=== PATIENT | female | born 1980 | race Caucasian/White ===

== ENCOUNTER 2018-07-21 07:56 | Day surgery (SDC) | payer OTHER ==
[2018-07-21] MEDS ORDERED: SOD CHLORIDE 0.9% 1,000 ML IV (08:30)
[2018-07-21] MEDS ORDERED: CEFAZOLIN 2 GM/50 ML (PMX) 50 ML IVPB (08:30)
[2018-07-21] MEDS ORDERED: DEXAMETHASONE 4 MG/ML 1 ML INJ (09:40)
[2018-07-21] MEDS ORDERED: ONDANSETRON 4 MG INJ (09:40)
[2018-07-21] MEDS ORDERED: CEFAZOLIN 1 GM INJ (09:40)
[2018-07-21] MEDS ORDERED: MIDAZOLAM 1 MG/ML 2 ML INJ (09:40)
[2018-07-21] MEDS ORDERED: FENTAnyl 50 MCG/ML VIAL (09:40)
[2018-07-21] MEDS ORDERED: PROPOFOL 40 ML (09:40)
[2018-07-21] MEDS ORDERED: FAMOTIDINE 20 MG INJ (09:40)
[2018-07-21] MEDS ORDERED: LIDOCAINE 2% (SDV) 5 ML INJ (09:40)
[2018-07-21] MEDS ORDERED: KETAMINE (50 MG/ML) 10 ML VIAL (11:06)
[2018-07-21] MEDS ORDERED: morphine (1 MG/ML) 10ML SYRINGE IV ×2 (11:30)
[2018-07-21] MEDS ORDERED: OXYCODONE/ACETAMINOPHEN (5/325) TAB PO ×2 (11:30)
[2018-07-21] MEDS ORDERED: DIPHENHYDRAMINE 50 MG INJ IV (11:30)
[2018-07-21] MEDS ORDERED: ALBUTEROL 0.083% (NEB) 2.5 MG/3 ML AMP HHN (11:30)
[2018-07-21] MEDS ORDERED: ONDANSETRON 4 MG INJ IV ×2 (11:30→12:30)
[2018-07-21] MEDS ORDERED: FENTAnyl 50 MCG/ML VIAL IV ×2 (11:30)
[2018-07-21] MEDS ORDERED: LABETALOL HCL 20MG INJ IV (11:30)
[2018-07-21] MEDS ORDERED: MEPERIDINE 25 MG INJ IV (11:30)
[2018-07-21] MEDS ORDERED: HYDROmorphONE 1 MG/5 ML IV SYRINGE IV ×2 (11:30)
[2018-07-21] MEDS ORDERED: BUPIVACAINE 0.25%/EPI (SDV) 10 ML INJ (11:35)
[2018-07-21] MEDS ORDERED: KETOROLAC 30 MG INJ (12:14)
[2018-07-21] MEDS: BUPIVACAINE 0.25%/EPI (SDV) 10 ML INJ INJ (12:15)
[2018-07-21] MEDS ORDERED: IBUPROFEN 600 MG TAB PO (12:30)
== END 2018-07-21 14:22 | disposition home or self-care (01) ==
LOC: SDS 07:56
DX: N60.12 Diffuse cystic mastopathy of left breast (principal)
CPT/HCPCS: 19120; 84703

== ENCOUNTER 2018-09-17 12:09 | Day surgery (SDC) | payer OTHER ==
[~2018-09-17 12:09] MED LIST: SOD CHLORIDE 0.9% 1,000 ML IV
[2018-09-17] MEDS ORDERED: morphine 2 MG INJ IV (13:30)
[2018-09-17] MEDS ORDERED: PROPOFOL 40 ML (13:30)
[2018-09-17] MEDS ORDERED: HYDROCODONE/APAP (5/325) TAB PO (13:30)
[2018-09-17] MEDS ORDERED: ACETAMINOPHEN 325 MG TAB PO (13:30)
[2018-09-17] MEDS ORDERED: LIDOCAINE 2% (SDV) 5 ML INJ (13:30)
[2018-09-17] MEDS ORDERED: ONDANSETRON 4 MG INJ IV ×2 (13:30→14:30)
[2018-09-17] MEDS: BUPIVACAINE 0.5%/EPI (SDV) 30 ML INJ (13:38)
[2018-09-17] MEDS ORDERED: CEFAZOLIN 1 GM INJ (13:41)
[2018-09-17] MEDS ORDERED: DEXAMETHASONE 4 MG/ML 5 ML INJ (13:42)
[2018-09-17] MEDS ORDERED: ONDANSETRON 4 MG INJ (13:42)
[2018-09-17] MEDS ORDERED: OXYCODONE/ACETAMINOPHEN (5/325) TAB PO (14:30)
[2018-09-17] MEDS ORDERED: KETOROLAC 30 MG INJ IV (14:30)
[2018-09-17] MEDS ORDERED: MEPERIDINE 25 MG INJ IV (14:30)
[2018-09-17] MEDS ORDERED: MIDAZOLAM 1 MG/ML 2 ML INJ IV (14:30)
[2018-09-17] MEDS ORDERED: hydrALAzine 20 MG INJ IV (14:30)
[2018-09-17] MEDS ORDERED: ALBUTEROL 0.083% (NEB) 2.5 MG/3 ML AMP HHN (14:30)
[2018-09-17] MEDS ORDERED: EPHEDrine SULFATE 50 MG/5 ML SYG IV (14:30)
[2018-09-17] MEDS ORDERED: DIPHENHYDRAMINE 50 MG INJ IV (14:30)
[2018-09-17] MEDS ORDERED: FENTAnyl 50 MCG/ML VIAL IV ×3 (14:30)
[2018-09-17] MEDS ORDERED: METOCLOPRAMIDE 10 MG INJ IV (14:30)
[2018-09-17] MEDS ORDERED: LABETALOL HCL 20MG INJ IV (14:30)
== END 2018-09-17 15:55 | disposition home or self-care (01) ==
LOC: SDS 12:09
DX: T85.44XA Capsular contracture of breast implant, initial encounter (principal); Y83.8 Other surgical procedures as the cause of abnormal reaction of the patient, or of later complication, without mention of misadventure at the time of the procedure
CPT/HCPCS: 19371; 84703; 88305